=== PATIENT | male | born 1950 | race Caucasian/White ===

== ENCOUNTER 2016-09-11 09:05 | Day surgery (SDC) | payer MEDICARE ==
--- NOTE | ~2016-09-11 | EGD ---
EGD REPORT [facility] [address] [place] [address] NAME: SUNG CALDWELL : [birth year] STATUS : REG [facility]#: [id number] AGE: 66 ADM/REG DATE : 09/11/16 MR#: [id number] REPORT SERV DATE: 09/11/16 DICTATED BY: SHANE TRACY DATE: 09/11/16 REPORT STATUS : Draft [facility] DATE: 09/11/16 [facility] Patient Name: Sung Caldwell Date of : 1950 Attending MD: SHANE TRACY, Procedure Date No Time: 09/11/2016 Procedure: Colonoscopy Indications: Abnormal CT of the GI tract Referring MD: JOSE LOPEZ Medicines: Monitored Anesthesia Care Complications: No immediate complications. Estimated blood loss: None. Procedure: Pre-Anesthesia Assessment: - ASA Grade Assessment: III - A patient with severe systemic disease. After I obtained informed consent, the scope was passed under direct vision. Throughout the procedure, the patient's blood pressure, pulse, and oxygen saturations were monitored continuously. The CF [id number] was introduced through the anus and advanced to the cecum, identified by appendiceal orifice and ileocecal valve. The colonoscopy was performed without difficulty. The patient tolerated the procedure well. The quality of the bowel preparation was good. Findings: The perianal and digital rectal examinations were normal. Internal hemorrhoids were found during retroflexion and were Grade II (internal hemorrhoids that prolapse but reduce spontaneously). Multiple small-mouthed diverticula were found in the sigmoid colon, in the descending colon and in the distal transverse colon. The exam was otherwise without abnormality on direct and retroflexion views. Impression: - Internal hemorrhoids. - Diverticulosis in the sigmoid colon, in the descending colon and in the distal transverse colon. - The examination was otherwise normal on direct and retroflexion views. Recommendation: - Patient has a contact number available for emergencies. The signs and symptoms of potential delayed complications were discussed with the patient. Return to normal activities tomorrow. Written discharge instructions were provided to the patient. - Return to previous diet. EGD REPORT [address] [address] NAME: SUNG CALDWELL : [birth year] STATUS : REG [facility]#: [id number] AGE: 66 ADM/REG DATE : 09/11/16 MR#: [id number] REPORT SERV DATE: 09/11/16 DICTATED BY: SHANE TRACY DATE: 09/11/16 REPORT STATUS : Draft TRANSCRIBED BY: Ringly DATE: 09/11/16 - Continue present medications. - Repeat colonoscopy in 10 years for screening purposes. Procedure Code(s): --- Professional --- 39682, Colonoscopy, flexible, proximal to splenic flexure; diagnostic, with or without collection of specimen(s) by brushing or washing, with or without colon decompression (separate procedure) Diagnosis Code(s): --- Professional --- K64.1, Second degree hemorrhoids K57.30, Diverticulosis of large intestine without perforation or abscess without bleeding R93.3, Abnormal findings on diagnostic imaging of other parts of digestive tract CPT copyright 2013 [employer]. All rights reserved. The codes documented in this report are preliminary and upon outpatient coder review may be revised to meet current compliance requirements. SHANE TRACY, 09/11/2016 12:37 PM Number of Addenda: 0 Note Initiated On: 09/11/2016 12:12 PM [address] [id number]
[~2016-09-11 09:05] MED LIST: ASAB PO; AVAP150 PO; CARDURA8 MG PO; COREG25 PO; CRESTOR20 MG PO; GLUCPH PO
== END 2016-09-11 23:59 | disposition home health service (06) ==
LOC: DMU 09:05
PROVIDERS: Internal Medicine Gastroenterology
PROC: 0DJD8ZZ Inspection of Lower Intestinal Tract, Via Natural or Artificial Opening Endoscopic (ICD-10-PCS; principal; 2016-09-11 11:00)
DX: K64.1 Second degree hemorrhoids (principal); K57.30 Diverticulosis of large intestine without perforation or abscess without bleeding; I10 Essential (primary) hypertension; E11.9 Type 2 diabetes mellitus without complications; E78.00 Pure hypercholesterolemia, unspecified; Z79.82 Long term (current) use of aspirin; Z79.899 Other long term (current) drug therapy; Z87.891 Personal history of nicotine dependence; Z98.890 Other specified postprocedural states
CPT/HCPCS: 82962; J0461